=== PATIENT | male | born 1950 | race Caucasian/White ===

== ENCOUNTER → 2017-02-26 | Outpatient (CLI) | payer MEDICARE ==
[~2017-02-26] MED LIST: ALTACE 5MG5 MG PO; ASPIRIN E.C. 8181 MG PO; CORDARONE200 MG/TAB PO; COREG 3.123.125 MG/T PO; K-DUR20 MEQ PO; LASIX 40MG TABL40 MG PO; PROTONIX 40MG T40 MG PO
== END ==
LOC: COL.RAD 09:35
DX: I70.0 Atherosclerosis of aorta (principal); F17.200 Nicotine dependence, unspecified, uncomplicated

== ENCOUNTER 2018-09-09 06:25 | Inpatient (IN) | payer MEDICARE ==
[2018-09-09] VITALS (564 sets, daily range): BP systolic 113–154; BP diastolic 78–103; PULSE 80–99; TEMP 97.6–98.2; O2SAT 82–100
[~2018-09-09] VITALS: Ht 177.8 cm; Wt 80.5 kg
[2018-09-09] MEDS ORDERED: DEMADEX 20MG20 M1 PO (06:45)
[2018-09-09 06:46] LABS: BASO # 0.1 (0.0-0.2); BASO % 0.8 % (0.0-2.0); EOS # 0.1 (0.0-0.7); EOS % 1.9 % (0-4.0); GRAN # 4.6 (1.4-6.5); GRAN % 70.2 % (42.2-75.2); HEMATOCRIT 44.2 % (42.0-52.0); HEMOGLOBIN 14.4 g/dl (13.5-18.0); LYMPH # 1.2 (1.2-3.4); MEAN CELL VOLUME 97 fl (80.0-100.0); MEAN CORPUSCULAR HEMOGLOBIN 32 pg (27.0-31.0); MEAN CORPUSCULAR HGB CONC 33 g/dl (33.0-37.0); MEAN PLATELET VOLUME 9.8 fl (7.4-10.4); MONO # 0.5 (0.1-0.6); MONO % 7.6 % (1.7-9.3); PLATELET COUNT 225 K/mm3 (130-400); RED BLOOD COUNT 4.54 M/mm3 (4.20-5.60); REDCELL DISTRIBUTION WIDTH-CV 15.9 % (11.5-14.5)
[2018-09-09 06:53] LABS: BILIRUBIN,TOTAL 1.4 mg/dL (0.0-1.0); CALCIUM 9.2 mg/dL (8.4-10.2); CREATININE, serum 1.36 mg/dL (0.66-1.25); POTASSIUM 3.8 mmol/L (3.4-5.0); TOTAL PROTEIN 7.2 gm/dL (6.4-8.2)
[2018-09-09 07:07] LABS: TROPONIN-I 0.057 ng/mL (0.000-0.034)
[2018-09-10] VITALS (1034 sets, daily range): BP systolic 92–146; BP diastolic 50–98; PULSE 70–96; TEMP 96.5–98.3; O2SAT 81–100
[2018-09-10 05:30] LABS: BASO % 0.1 % (0.0-2.0); GRAN # 6.4 (1.4-6.5); GRAN % 88.4 % (42.2-75.2); HEMOGLOBIN 13.1 g/dl (13.5-18.0); LYMPH # 0.5 (1.2-3.4); LYMPH % 6.4 % (20.0-51.0); MEAN CELL VOLUME 95 fl (80.0-100.0); MEAN CORPUSCULAR HEMOGLOBIN 32 pg (27.0-31.0); MEAN CORPUSCULAR HGB CONC 34 g/dl (33.0-37.0); MONO # 0.3 (0.1-0.6); MONO % 4.7 % (1.7-9.3); PLATELET COUNT 204 K/mm3 (130-400); RED BLOOD COUNT 4.09 M/mm3 (4.20-5.60); REDCELL DISTRIBUTION WIDTH-CV 15.6 % (11.5-14.5)
[2018-09-10 05:40] LABS: CALCIUM 8.6 mg/dL (8.4-10.2); CREATININE, serum 1.13 mg/dL (0.66-1.25); MAGNESIUM 1.8 mg/dL (1.6-2.3); POTASSIUM 3.8 mmol/L (3.4-5.0)
[2018-09-11 00:35] VITALS: BP 111/70; PULSE 80; TEMP 98.2
[2018-09-11 04:01] VITALS: BP 121/75; PULSE 68
[2018-09-11 07:05] LABS: BASO % 0.5 % (0.0-2.0); EOS # 0.1 (0.0-0.7); GRAN # 6.7 (1.4-6.5); GRAN % 82.3 % (42.2-75.2); HEMOGLOBIN 13.9 g/dl (13.5-18.0); LYMPH # 0.8 (1.2-3.4); LYMPH % 9.9 % (20.0-51.0); MEAN CELL VOLUME 95 fl (80.0-100.0); MEAN CORPUSCULAR HEMOGLOBIN 32 pg (27.0-31.0); MEAN CORPUSCULAR HGB CONC 34 g/dl (33.0-37.0); MEAN PLATELET VOLUME 10.3 fl (7.4-10.4); MONO # 0.5 (0.1-0.6); MONO % 6.2 % (1.7-9.3); PLATELET COUNT 222 K/mm3 (130-400); RED BLOOD COUNT 4.34 M/mm3 (4.20-5.60); REDCELL DISTRIBUTION WIDTH-CV 15.6 % (11.5-14.5)
[2018-09-11 07:20] LABS: ALBUMIN 3.4 gm/dL (3.5-5.0); BILIRUBIN,TOTAL 2.2 mg/dL (0.0-1.0); C-REACTIVE PROTEIN 2.5 mg/dL (0.0-0.9); CALCIUM 8.7 mg/dL (8.4-10.2); CREATININE, serum 1.11 mg/dL (0.66-1.25); POTASSIUM 3.5 mmol/L (3.4-5.0); TOTAL PROTEIN 6.4 gm/dL (6.4-8.2)
[2018-09-11 08:19] VITALS: BP 128/78; PULSE 84; TEMP 98.4
[2018-09-11 11:02] VITALS: BP 95/68; PULSE 82; TEMP 98.8
[2018-09-11] MEDS ORDERED: BRILINTA90 MG PO (13:55)
[2018-09-11] MEDS ORDERED: PROAIR HFA0.09 MG/AC IH (13:55)
[2018-09-11] MEDS ORDERED: PACERONE400 MG PO (13:55)
[2018-09-11] MEDS ORDERED: NITRO-DUR0.6 MG/PAT TD (13:56)
[2018-09-11] MEDS ORDERED: NITROSTAT0.4 MG/TAB SL (13:56)
[2018-09-11] MEDS ORDERED: LIPITOR20 MG PO (13:56)
[2018-09-11] MEDS ORDERED: COREG 3.123.125 MG/T PO (13:56)
[2018-09-11] MEDS ORDERED: LASIX 40MG TABL40 MG PO (13:57)
[2018-09-11] MEDS ORDERED: ENTRESTO 24 MG1 EACH PO (13:57)
[2018-09-11] MEDS ORDERED: ASPIRIN E.C. 8181 MG PO (13:57)
[2018-09-11 17:06] LABS: RHEUMATOID FACTOR-SCREEN <15 IU/mL (0-29)
[2018-09-13 23:47] LABS: ANA SCREEN with REFLEX Positive (Negative)
[2018-09-14 13:37] LABS: ANGIOTENSIN CONVERTING ENZYME 29 U/L (8 - 53)
== END 2018-09-11 15:15 | disposition home or self-care (01) | DRG 246 ==
LOC: COL.ER 06:25 → ICU 08:19 → MEDICAL 09-10 18:01
PROVIDERS: Emergency Medicine; Internal Medicine Pulmonary Disease; Physician Assistant
PROC: B2111ZZ Fluoroscopy of Multiple Coronary Arteries using Low Osmolar Contrast (ICD-10-PCS; principal; 2018-09-09)
PROC: 027034Z Dilation of Coronary Artery, One Artery with Drug-eluting Intraluminal Device, Percutaneous Approach (ICD-10-PCS; 2018-09-09)
PROC: 02703ZZ Dilation of Coronary Artery, One Artery, Percutaneous Approach (ICD-10-PCS; 2018-09-09)
DX: I21.4 Non-ST elevation (NSTEMI) myocardial infarction (principal); I50.23 Acute on chronic systolic (congestive) heart failure; I47.2 Ventricular tachycardia; I42.9 Cardiomyopathy, unspecified; N17.9 Acute kidney failure, unspecified; T82.855A Stenosis of coronary artery stent, initial encounter; J84.9 Interstitial pulmonary disease, unspecified; I27.22 Pulmonary hypertension due to left heart disease; I08.1 Rheumatic disorders of both mitral and tricuspid valves; Z95.810 Presence of automatic (implantable) cardiac defibrillator; I25.10 Atherosclerotic heart disease of native coronary artery without angina pectoris; Z95.5 Presence of coronary angioplasty implant and graft; F17.210 Nicotine dependence, cigarettes, uncomplicated; Z23 Encounter for immunization; J44.9 Chronic obstructive pulmonary disease, unspecified
CPT/HCPCS: 99223-AI; 99232-AI; 99239; C1725; C1760; C1769; C1874; C1887; C1894; C9600; J0282; J1644; J1940; J2250; J2270; J3010; J7030; J7060; Q9967

== ENCOUNTER 2018-11-23 12:25 | Inpatient (IN) | payer MEDICARE ==
[~2018-11-23] VITALS: Ht 177.8 cm; Wt 92.7 kg
[~2018-11-23 12:25] MED LIST changes: +BRILINTA90 MG PO; +DEMADEX 20MG20 M1 PO; +ENTRESTO 24 MG1 EACH PO; +LIPITOR20 MG PO; +NITRO-DUR0.6 MG/PAT TD; +NITROSTAT0.4 MG/TAB SL; +PACERONE400 MG PO; +PROAIR HFA0.09 MG/AC IH
[2018-11-23 13:04] LABS: BASO % 0.3 % (0.0-2.0); EOS % 0.2 % (0-4.0); GRAN # 8.9 (1.4-6.5); GRAN % 83.8 % (42.2-75.2); HEMATOCRIT 44.5 % (42.0-52.0); HEMOGLOBIN 14.6 g/dl (13.5-18.0); LYMPH # 0.6 (1.2-3.4); LYMPH % 5.3 % (20.0-51.0); MEAN CELL VOLUME 93 fl (80.0-100.0); MEAN CORPUSCULAR HEMOGLOBIN 30 pg (27.0-31.0); MEAN CORPUSCULAR HGB CONC 33 g/dl (33.0-37.0); MEAN PLATELET VOLUME 11.4 fl (7.4-10.4); MONO # 1.1 (0.1-0.6); PLATELET COUNT 224 K/mm3 (130-400); REDCELL DISTRIBUTION WIDTH-CV 15.4 % (11.5-14.5)
[2018-11-23 13:27] LABS: INR 1.4 (0.8-3.0); PROTHROMBIN TIME 16.2 SECONDS (9.7-12.8)
[2018-11-23 13:30] LABS: PARTIAL THROMBOPLASTIN TIME 29.8 SECONDS (26.0-37.0)
[2018-11-23 13:31] LABS: ALBUMIN 3.4 gm/dL (3.5-5.0); BILIRUBIN,TOTAL 2.8 mg/dL (0.0-1.0); CALCIUM 8.8 mg/dL (8.4-10.2); CREATININE, serum 0.95 mg/dL (0.66-1.25); POTASSIUM 3.8 mmol/L (3.4-5.0); TOTAL PROTEIN 6.6 gm/dL (6.4-8.2)
[2018-11-23 13:46] LABS: TROPONIN-I 0.047 ng/mL (0.000-0.034)
[2018-11-23] MEDS ORDERED: BRILINTA90 MG PO (15:58)
[2018-11-23] MEDS ORDERED: PACERONE400 MG PO (15:59)
--- NOTE | 2018-11-23 17:40 | NUR ---
arrived on unit per WC, assisted into bed, full assessment completed, see intervention for further info, instructed on ordering supper, verbalizes understanding
[2018-11-23] MEDS ORDERED: DEMADEX 20MG20 M1 PO (17:53)
[2018-11-23 18:08] VITALS: BP 130/874; PULSE 103; TEMP 101.7
--- NOTE | 2018-11-23 18:33 | NUR ---
sitting up in bed eating supper
--- NOTE | 2018-11-23 19:11 | NUR ---
bedside shift report given to KANWAL Bran
[2018-11-23 19:44] VITALS: BP 113/77; PULSE 105; TEMP 99.5
--- NOTE | 2018-11-23 20:20 | NUR ---
Shift assessment complete. Pt resting in bed, awake, a&o, cooperative c cares. Pt denies pain, SOB or any other c/o at this time. INT patent. Tele in place. Pt denies needs. Call light in reach, will monitor.
[2018-11-24 00:03] VITALS: BP 81/49; PULSE 96; TEMP 99.9
[2018-11-24 01:00] VITALS: BP 113/63; PULSE 101
--- NOTE | 2018-11-24 07:00 | NUR ---
Report received from KANWAL Bran. Pt in bed resting, denies needs, will continue to monitor.
[2018-11-24 08:03] VITALS: BP 129/86; PULSE 91; TEMP 100.3
[2018-11-24 08:34] LABS: BASO % 0.2 % (0.0-2.0); GRAN # 10.4 (1.4-6.5); HEMATOCRIT 40.3 % (42.0-52.0); HEMOGLOBIN 13.7 g/dl (13.5-18.0); LYMPH # 0.6 (1.2-3.4); LYMPH % 4.6 % (20.0-51.0); MEAN CELL VOLUME 90 fl (80.0-100.0); MEAN CORPUSCULAR HEMOGLOBIN 30 pg (27.0-31.0); MEAN CORPUSCULAR HGB CONC 34 g/dl (33.0-37.0); MEAN PLATELET VOLUME 9.9 fl (7.4-10.4); MONO # 1.3 (0.1-0.6); MONO % 10.1 % (1.7-9.3); PLATELET COUNT 213 K/mm3 (130-400); REDCELL DISTRIBUTION WIDTH-CV 15.2 % (11.5-14.5)
[2018-11-24 08:46] LABS: CALCIUM 8.7 mg/dL (8.4-10.2); CREATININE, serum 0.97 mg/dL (0.66-1.25); POTASSIUM 3.8 mmol/L (3.4-5.0)
--- NOTE | 2018-11-24 09:13 | NUR ---
Assessment charted. Pt feels warm, PRN tylenol provided. Breathing is labored on exertion and states "i just don't feel real great". Lung assessment charted. Pt wants to eat breakfast and take a shower. Discussed pending RSV panel and droplet precautions. INT to R a/c. Will continue to montior.
[2018-11-24 11:47] VITALS: BP 92/65; PULSE 81; TEMP 97.9
--- NOTE | 2018-11-24 13:27 | NUR ---
First visit from the drywall boardhanger. No needs right now.
[2018-11-24] MEDS ORDERED: AMOXICILLIN 8751 TAB PO (14:34)
[2018-11-24] MEDS ORDERED: NICODERM C14 MG/PATC TD (14:34)
--- NOTE | 2018-11-24 15:44 | NUR ---
Discharge teaching completed at this time. Pt received script sent to pharm, f/u appointments, reveiwed packet. Answered all questions. INT d/c'd, tip intact. Pt escorted out by medical staff. Left with all belongings, okay to drive self home per hospitalist KENROY High. Criteria met.
== END 2018-11-24 15:57 | disposition home or self-care (01) | DRG 313 ==
LOC: COL.ER 12:25 → MEDICAL 15:56
PROVIDERS: Family Medicine; Physician Assistant; ADMIT Hospitalist
DX: R07.89 Other chest pain (principal); J18.9 Pneumonia, unspecified organism; J44.0 Chronic obstructive pulmonary disease with (acute) lower respiratory infection; I50.22 Chronic systolic (congestive) heart failure; R04.2 Hemoptysis; J90 Pleural effusion, not elsewhere classified; I11.0 Hypertensive heart disease with heart failure; I25.10 Atherosclerotic heart disease of native coronary artery without angina pectoris; F17.210 Nicotine dependence, cigarettes, uncomplicated; Z95.5 Presence of coronary angioplasty implant and graft; Z95.810 Presence of automatic (implantable) cardiac defibrillator
CPT/HCPCS: 99222-AI; 99239; A4216; J0456; J0696; J1644; J1940; J2060; J7050

== ENCOUNTER 2018-12-21 08:02 | Inpatient (IN) | payer MEDICARE | END 2018-12-27 15:45 | disposition home or self-care (01) | DRG 280 | LOC: COL.ER 08:02 → ICU 09:22 → MEDICAL 12-23 16:58 → ICU 12-23 23:23 → MEDICAL 12-25 16:34 | PROVIDERS: ADMIT Internal Medicine | DX: I11.0 Hypertensive heart disease with heart failure (principal); I21.4 Non-ST elevation (NSTEMI) myocardial infarction; I26.99 Other pulmonary embolism without acute cor pulmonale; J96.21 Acute and chronic respiratory failure with hypoxia; E87.3 Alkalosis; Z66 Do not resuscitate; I50.23 Acute on chronic systolic (congestive) heart failure; Z87.891 Personal history of nicotine dependence; I25.10 Atherosclerotic heart disease of native coronary artery without angina pectoris; Z95.5 Presence of coronary angioplasty implant and graft; Z95.810 Presence of automatic (implantable) cardiac defibrillator; I25.5 Ischemic cardiomyopathy; E87.6 Hypokalemia ==

== ENCOUNTER 2018-12-28 10:08 | Emergency (ER) | payer MEDICARE ==
[~2018-12-28] VITALS: Ht 177.8 cm; Wt 87.3 kg
[~2018-12-28 10:08] MED LIST changes: +AMOXICILLIN 8751 TAB PO; +COUMADIN4 MG PO; +DEMADEX10 MG PO; +K-DUR 10 MEQ T10 MEQ PO; +NICODERM C14 MG/PATC TD; +PLAVIX 75MG TAB75 MG PO; +ZESTRIL 5MG5 MG PO
[2018-12-28 10:15] VITALS: TEMP 97.6
[2018-12-28 10:32] LABS: BASO % 0.4 % (0.0-2.0); EOS # 0.1 (0.0-0.7); EOS % 1.1 % (0-4.0); GRAN # 5.7 (1.4-6.5); GRAN % 78.5 % (42.2-75.2); HEMATOCRIT 45.3 % (42.0-52.0); HEMOGLOBIN 14.6 g/dl (13.5-18.0); LYMPH # 0.8 (1.2-3.4); LYMPH % 10.8 % (20.0-51.0); MEAN CELL VOLUME 92 fl (80.0-100.0); MEAN CORPUSCULAR HEMOGLOBIN 30 pg (27.0-31.0); MEAN CORPUSCULAR HGB CONC 32 g/dl (33.0-37.0); MEAN PLATELET VOLUME 10.2 fl (7.4-10.4); MONO # 0.6 (0.1-0.6); MONO % 8.8 % (1.7-9.3); PLATELET COUNT 233 K/mm3 (130-400); RED BLOOD COUNT 4.94 M/mm3 (4.20-5.60); REDCELL DISTRIBUTION WIDTH-CV 16.2 % (11.5-14.5)
[2018-12-28 10:40] LABS: ARTERIAL BLD GAS TCO2 CT 31.9; ARTERIAL BLOOD GAS BASE EXCESS 6.6 (-2-2); ARTERIAL BLOOD GAS HCO3 30.6 meq/L (22-26); ARTERIAL BLOOD GAS PCO2 41.3 mmHg (35-45); ARTERIAL BLOOD GAS pH 7.49 (7.35-7.45)
[2018-12-28 10:50] LABS: ALBUMIN 3.5 gm/dL (3.5-5.0); BILIRUBIN,TOTAL 1.4 mg/dL (0.0-1.0); CREATININE, serum 1.03 mg/dL (0.66-1.25); POTASSIUM 4.1 mmol/L (3.4-5.0); TOTAL PROTEIN 7.2 gm/dL (6.4-8.2)
[2018-12-28 11:57] LABS: INR 2.5 (0.8-3.0); PROTHROMBIN TIME 28.9 SECONDS (9.7-12.8)
--- NOTE | 2018-12-28 14:30 | NUR ---
BUBBA spoke with ED nurse about patient possibly needing placement or home health services. BUBBA met with patient and son in law to disucss SNF vs HH. Patient and ANDREW decided that SNF would be the best option at this time. Patient chose [facility] and signed choice form. BUBBA faxed referral to Nikita at [facility]. Nikita also met with patient in ED. BUBBA will arrange transportation once PT/OT evaluated patient.
[2018-12-28 16:08] VITALS: BP 116/93; PULSE 72
== END 2018-12-28 16:08 | disposition home or self-care (01) ==
LOC: COL.ER 10:08
PROVIDERS: Emergency Medicine
DX: I26.99 Other pulmonary embolism without acute cor pulmonale (principal); I25.10 Atherosclerotic heart disease of native coronary artery without angina pectoris; Z87.891 Personal history of nicotine dependence; Z98.890 Other specified postprocedural states; Z95.5 Presence of coronary angioplasty implant and graft; Z79.82 Long term (current) use of aspirin; Z79.01 Long term (current) use of anticoagulants; Z79.02 Long term (current) use of antithrombotics/antiplatelets
CPT/HCPCS: J1885; J1940; J2930

== ENCOUNTER 2019-01-12 12:15 | Emergency (ER) | payer MEDICARE ==
[~2019-01-12] VITALS: Ht 177.8 cm; Wt 91.8 kg
[2019-01-12 12:32] VITALS: TEMP 97.9
[2019-01-12 14:00] LABS: BASO % 0.4 % (0.0-2.0); EOS # 0.1 (0.0-0.7); EOS % 1.3 % (0-4.0); GRAN # 3.4 (1.4-6.5); GRAN % 71.6 % (42.2-75.2); HEMATOCRIT 41.1 % (42.0-52.0); HEMOGLOBIN 13.4 g/dl (13.5-18.0); LYMPH % 20.8 % (20.0-51.0); MEAN CELL VOLUME 91 fl (80.0-100.0); MEAN CORPUSCULAR HEMOGLOBIN 30 pg (27.0-31.0); MEAN CORPUSCULAR HGB CONC 33 g/dl (33.0-37.0); MONO # 0.3 (0.1-0.6); MONO % 5.7 % (1.7-9.3); PLATELET COUNT 192 K/mm3 (130-400); RED BLOOD COUNT 4.53 M/mm3 (4.20-5.60); REDCELL DISTRIBUTION WIDTH-CV 17.7 % (11.5-14.5)
[2019-01-12 14:12] LABS: INR 4.3 (0.8-3.0)
[2019-01-12 14:13] LABS: ALBUMIN 3.3 gm/dL (3.5-5.0); BILIRUBIN,TOTAL 1.1 mg/dL (0.0-1.0); CALCIUM 8.5 mg/dL (8.4-10.2); CREATININE, serum 1.46 mg/dL (0.66-1.25); POTASSIUM 3.9 mmol/L (3.4-5.0); TOTAL PROTEIN 6.2 gm/dL (6.4-8.2)
[2019-01-12 14:15] LABS: PARTIAL THROMBOPLASTIN TIME 43.7 SECONDS (26.0-37.0)
[2019-01-12 14:20] LABS: PROTHROMBIN TIME 48.6 SECONDS (9.7-12.8)
[2019-01-12 14:25] LABS: TROPONIN-I 0.015 ng/mL (0.000-0.035)
[2019-01-12 17:09] VITALS: BP 113/96; PULSE 70
== END 2019-01-12 17:20 | disposition home or self-care (01) ==
LOC: COL.ER 12:15
PROVIDERS: Emergency Medicine
DX: I50.1 Left ventricular failure, unspecified (principal); I10 Essential (primary) hypertension; I25.10 Atherosclerotic heart disease of native coronary artery without angina pectoris; E78.5 Hyperlipidemia, unspecified; Z95.5 Presence of coronary angioplasty implant and graft; Z95.1 Presence of aortocoronary bypass graft; Z79.82 Long term (current) use of aspirin
CPT/HCPCS: J1940

== ENCOUNTER 2019-09-16 17:57 | Observation (INO) | payer MEDICARE ==
[~2019-09-16] VITALS: Ht 177.8 cm; Wt 90.6 kg
[2019-09-16 18:28] LABS: BASO # 0.1 (0.0-0.2); BASO % 1.3 % (0.0-2.0); EOS # 0.2 (0.0-0.7); EOS % 4.2 % (0-4.0); GRAN # 3.2 (1.4-6.5); GRAN % 60.4 % (42.2-75.2); HEMATOCRIT 42.9 % (42.0-52.0); HEMOGLOBIN 13.4 g/dl (13.5-18.0); LYMPH # 1.2 (1.2-3.4); LYMPH % 22.3 % (20.0-51.0); MEAN CELL VOLUME 89 fl (80.0-100.0); MEAN CORPUSCULAR HEMOGLOBIN 28 pg (27.0-31.0); MEAN CORPUSCULAR HGB CONC 31 g/dl (33.0-37.0); MEAN PLATELET VOLUME 9.6 fl (7.4-10.4); MONO # 0.6 (0.1-0.6); MONO % 11.4 % (1.7-9.3); PLATELET COUNT 212 K/mm3 (130-400); REDCELL DISTRIBUTION WIDTH-CV 18.5 % (11.5-14.5)
[2019-09-16 18:36] LABS: INR 1.9 (0.8-3.0); PROTHROMBIN TIME 22.4 SECONDS (9.7-12.8)
[2019-09-16 18:46] LABS: BILIRUBIN,TOTAL 1.8 mg/dL (0.0-1.0); C-REACTIVE PROTEIN 1.1 mg/dL (0.0-0.9); CREATININE, serum 1.28 (0.66-1.25); POTASSIUM 3.2 mmol/L (3.4-5.0); TOTAL PROTEIN 7.3 gm/dL (6.4-8.2)
[2019-09-16 18:55] LABS: TROPONIN-I 0.019 ng/mL (0.000-0.035)
[2019-09-16] MEDS ORDERED: PLAVIX 75MG TAB75 MG PO (20:31)
[2019-09-17] VITALS (7 sets, daily range): BP systolic 95–122; BP diastolic 64–86; PULSE 50–104; TEMP 97.6–98.6
[2019-09-17] MEDS ORDERED: COUMADIN4 MG PO ×2 (01:41)
[2019-09-17] MEDS ORDERED: COREG 3.123.125 MG/T PO (01:43)
[2019-09-17] MEDS ORDERED: DEMADEX 20MG20 M1 PO (01:44)
[2019-09-17] MEDS ORDERED: PACERONE200 MG PO (01:47)
[2019-09-17] MEDS ORDERED: K-TAB20 PO (02:57)
[2019-09-17 04:42] LABS: BASO # 0.1 (0.0-0.2); BASO % 1.1 % (0.0-2.0); EOS # 0.1 (0.0-0.7); EOS % 1.1 % (0-4.0); GRAN # 4.1 (1.4-6.5); GRAN % 73.8 % (42.2-75.2); HEMATOCRIT 39.8 % (42.0-52.0); HEMOGLOBIN 12.8 g/dl (13.5-18.0); LYMPH # 0.8 (1.2-3.4); MEAN CELL VOLUME 89 fl (80.0-100.0); MEAN CORPUSCULAR HEMOGLOBIN 29 pg (27.0-31.0); MEAN CORPUSCULAR HGB CONC 32 g/dl (33.0-37.0); MEAN PLATELET VOLUME 9.8 fl (7.4-10.4); MONO # 0.5 (0.1-0.6); MONO % 9.8 % (1.7-9.3); PLATELET COUNT 192 K/mm3 (130-400); RED BLOOD COUNT 4.49 M/mm3 (4.20-5.60); REDCELL DISTRIBUTION WIDTH-CV 18.2 % (11.5-14.5)
[2019-09-17 04:48] LABS: CALCIUM 8.7 mg/dL (8.4-10.2); CREATININE, serum 1.1 (0.66-1.25); POTASSIUM 3.8 mmol/L (3.4-5.0)
[2019-09-17 04:54] LABS: INR 2.1 (0.8-3.0)
[2019-09-17 05:00] LABS: TROPONIN-I 0.023 ng/mL (0.000-0.035)
--- NOTE | 2019-09-17 18:37 | NUR ---
PT HAD UNEVENTFUL DAY. NO CALLS TO THIS NURSE ABOUT CAHNGES IN TELE RTHYMS OR OVER OR UNDER RATE ALARMS. POTASSIUM REPLACED THIS AM WAS 3.8, PT HAD ONE 20MEQ TABLET. PT ON ROOM AIR THIS SHIFT. NEEDED PAIN MED X1 THIS AFTERNOON FOR HEAD/RIB PAIN, NO FURTHER NEEDS VOICED AFTERWARDS.
--- NOTE | 2019-09-17 21:30 | NUR ---
Shift assessment complete. Patient in bed, awake. States, pain in left side from previous fall. Prn tylenol given per pt request. Denies further needs at this time. Will continue to monitor.
[2019-09-18 03:33] VITALS: BP 99/67; PULSE 73; TEMP 97.9
--- NOTE | 2019-09-18 04:25 | NUR ---
Patient in bed, sleeping. Appears comfortable. Will continue to monitor.
[2019-09-18 06:27] LABS: CALCIUM 8.6 mg/dL (8.4-10.2); CREATININE, serum 1.29 (0.66-1.25); POTASSIUM 3.6 mmol/L (3.4-5.0)
[2019-09-18 07:46] VITALS: BP 106/68; PULSE 70; TEMP 98.5
[2019-09-18] MEDS ORDERED: PACERONE200 MG PO (11:51)
[2019-09-18 12:01] VITALS: BP 101/73; PULSE 71; TEMP 97.3
--- NOTE | 2019-09-18 14:41 | NUR ---
PT DISCHARGE INFO WENT OVER WITH PT. ALL QUESITONS ANSWERED. IV AND TELE REMOVED WITHOUT ISSUE. REVIEWED [facility] WITH PT.
== END 2019-09-18 13:30 | disposition home or self-care (01) ==
LOC: COL.ER 17:57 → MEDICAL 23:23
PROVIDERS: Emergency Medicine; Nurse Practitioner Family; ADMIT Hospitalist
DX: R55 Syncope and collapse (principal); I47.2 Ventricular tachycardia; S00.83XA Contusion of other part of head, initial encounter; S20.212A Contusion of left front wall of thorax, initial encounter; I13.0 Hypertensive heart and chronic kidney disease with heart failure and stage 1 through stage 4 chronic kidney disease, or unspecified chronic kidney disease; E87.6 Hypokalemia; I48.91 Unspecified atrial fibrillation; Z79.01 Long term (current) use of anticoagulants; I25.10 Atherosclerotic heart disease of native coronary artery without angina pectoris; I25.5 Ischemic cardiomyopathy; I50.30 Unspecified diastolic (congestive) heart failure; Z86.711 Personal history of pulmonary embolism; N18.3 Chronic kidney disease, stage 3 (moderate); I25.2 Old myocardial infarction; Z95.5 Presence of coronary angioplasty implant and graft; Z87.891 Personal history of nicotine dependence; Z79.82 Long term (current) use of aspirin; Z79.02 Long term (current) use of antithrombotics/antiplatelets
CPT/HCPCS: A9284; G0008; G0378; J1650; J7030

== ENCOUNTER 2020-10-03 13:43 | Emergency (ER) | payer MEDICARE ==
[~2020-10-03] VITALS: Ht 177.8 cm; Wt 98.6 kg
[~2020-10-03 13:43] MED LIST changes: +K-TAB20 PO; +PACERONE200 MG PO
[2020-10-03 14:12] LABS: BASO % 0.7 % (0.0-2.0); EOS # 0.1 (0.0-0.7); GRAN # 4.2 (1.4-6.5); GRAN % 75.7 % (42.2-75.2); HEMATOCRIT 48.6 % (42.0-52.0); HEMOGLOBIN 15.9 g/dl (13.5-18.0); LYMPH # 0.6 (1.2-3.4); LYMPH % 10.7 % (20.0-51.0); MEAN CELL VOLUME 94 fl (80.0-100.0); MEAN CORPUSCULAR HEMOGLOBIN 31 pg (27.0-31.0); MEAN CORPUSCULAR HGB CONC 33 g/dl (33.0-37.0); MEAN PLATELET VOLUME 9.9 fl (7.4-10.4); MONO # 0.6 (0.1-0.6); MONO % 10.7 % (1.7-9.3); PLATELET COUNT 220 K/mm3 (130-400); RED BLOOD COUNT 5.17 M/mm3 (4.20-5.60); REDCELL DISTRIBUTION WIDTH-CV 17.4 % (11.5-14.5)
[2020-10-03 15:00] LABS: ALBUMIN 3.7 gm/dL (3.5-5.0); BILIRUBIN,TOTAL 2.5 mg/dL (0.0-1.0); CALCIUM 8.9 mg/dL (8.4-10.2); CREATININE, serum 1.88 (0.66-1.25); POTASSIUM 4.1 mmol/L (3.4-5.0); TOTAL PROTEIN 6.9 gm/dL (6.4-8.2)
[2020-10-03] MEDS ORDERED: K-DUR20 MEQ PO (15:03)
[2020-10-03 15:12] LABS: TROPONIN-I 0.026 ng/mL (0.000-0.035)
[2020-10-03] MEDS ORDERED: ZAROXOLYN5 MG PO (15:46)
[2020-10-03 16:00] VITALS: BP 117/82; PULSE 69; TEMP 97.6
== END 2020-10-03 16:10 | disposition home or self-care (01) ==
LOC: COL.ER 13:43
PROVIDERS: Emergency Medicine
DX: I50.9 Heart failure, unspecified (principal); Z95.0 Presence of cardiac pacemaker; Z98.61 Coronary angioplasty status; Z87.891 Personal history of nicotine dependence; Z79.82 Long term (current) use of aspirin; Z79.01 Long term (current) use of anticoagulants; Z79.02 Long term (current) use of antithrombotics/antiplatelets

== ENCOUNTER 2021-01-03 13:29 | Emergency (ER) | payer MEDICARE ==
[~2021-01-03] VITALS: Ht 177.8 cm; Wt 88.6 kg
[~2021-01-03 13:29] MED LIST changes: +ZAROXOLYN5 MG PO
[2021-01-03 14:12] LABS: BASO % 0.5 % (0.0-2.0); EOS # 0.1 (0.0-0.7); EOS % 1.3 % (0-4.0); GRAN # 6.8 (1.4-6.5); GRAN % 80.7 % (42.2-75.2); HEMATOCRIT 48.7 % (42.0-52.0); HEMOGLOBIN 16.8 g/dl (13.5-18.0); LYMPH # 0.7 (1.2-3.4); LYMPH % 7.9 % (20.0-51.0); MEAN CELL VOLUME 92 fl (80.0-100.0); MEAN CORPUSCULAR HEMOGLOBIN 32 pg (27.0-31.0); MEAN CORPUSCULAR HGB CONC 35 g/dl (33.0-37.0); MEAN PLATELET VOLUME 9.4 fl (7.4-10.4); MONO # 0.8 (0.1-0.6); MONO % 9.2 % (1.7-9.3); PLATELET COUNT 308 K/mm3 (130-400); RED BLOOD COUNT 5.29 M/mm3 (4.20-5.60); REDCELL DISTRIBUTION WIDTH-CV 15.9 % (11.5-14.5)
[2021-01-03 14:19] LABS: ALBUMIN 4.6 gm/dL (3.5-5.0); BILIRUBIN,TOTAL 1.7 mg/dL (0.0-1.0); CALCIUM 9.6 mg/dL (8.4-10.2); CREATININE, serum 3.53 (0.66-1.25); TOTAL PROTEIN 8.4 gm/dL (6.4-8.2)
[2021-01-03 14:34] LABS: INR 1.8 (0.8-3.0); PROTHROMBIN TIME 20.2 SECONDS (9.7-12.8)
[2021-01-03 14:35] LABS: TROPONIN-I 0.058 ng/mL (0.000-0.035)
[2021-01-03 18:07] VITALS: BP 108/75; PULSE 69; TEMP 97.2
== END 2021-01-03 18:10 | disposition home or self-care (01) ==
LOC: COL.ER 13:29
PROVIDERS: Family Medicine; Physician Assistant
DX: R55 Syncope and collapse (principal); E87.1 Hypo-osmolality and hyponatremia; E86.0 Dehydration; I50.9 Heart failure, unspecified; Z95.0 Presence of cardiac pacemaker; I25.2 Old myocardial infarction; Z98.61 Coronary angioplasty status; Z87.891 Personal history of nicotine dependence; Z79.82 Long term (current) use of aspirin; Z79.01 Long term (current) use of anticoagulants; Z79.02 Long term (current) use of antithrombotics/antiplatelets

== ENCOUNTER 2021-05-07 12:22 | Observation (INO) | payer MEDICARE ==
[~2021-05-07] VITALS: Ht 177.8 cm; Wt 96.4 kg
[2021-05-07 12:47] LABS: BASO % 0.6 % (0.0-2.0); EOS # 0.1 (0.0-0.7); EOS % 1.6 % (0-4.0); GRAN # 5.4 (1.4-6.5); HEMATOCRIT 50.6 % (42.0-52.0); HEMOGLOBIN 17.1 g/dl (13.5-18.0); LYMPH # 0.7 (1.2-3.4); LYMPH % 10.8 % (20.0-51.0); MEAN CELL VOLUME 91 fl (80.0-100.0); MEAN CORPUSCULAR HEMOGLOBIN 31 pg (27.0-31.0); MEAN CORPUSCULAR HGB CONC 34 g/dl (33.0-37.0); MEAN PLATELET VOLUME 9.5 fl (7.4-10.4); MONO # 0.6 (0.1-0.6); MONO % 8.7 % (1.7-9.3); PLATELET COUNT 278 K/mm3 (130-400); RED BLOOD COUNT 5.54 M/mm3 (4.20-5.60); REDCELL DISTRIBUTION WIDTH-CV 13.6 % (11.5-14.5)
[2021-05-07 13:02] LABS: ALBUMIN 4.5 gm/dL (3.5-5.0); BILIRUBIN,TOTAL 1.4 mg/dL (0.0-1.0); C-REACTIVE PROTEIN 0.8 mg/dL (0.0-0.9); CALCIUM 9.5 mg/dL (8.4-10.2); CREATININE, serum 3.01 (0.66-1.25); TOTAL PROTEIN 8.6 gm/dL (6.4-8.2)
[2021-05-07 13:03] LABS: POTASSIUM 2.9 mmol/L (3.4-5.0)
[2021-05-07] MEDS ORDERED: ZAROXOLYN 2.52.5 MG (13:08)
[2021-05-07 13:15] LABS: TROPONIN-I 0.042 ng/mL (0.000-0.035)
[2021-05-07 13:46] LABS: INR 1.7 (0.8-3.0); PROTHROMBIN TIME 19.1 SECONDS (9.7-12.8)
--- NOTE | 2021-05-07 16:09 | NUR ---
PT TRANSFERRED TO MEDICAL FLOOR AT 1555 VIA ER STAFF, PT A/OX, ROOM AIR, VSS, PT REQUESTS FOOD AND WATER, NURSE AWAITING DIET ORDERS TO PROCEED WITH DIET CONSUMPTION. TELE MONITOR ON AND FUNCTIONAL. NURSE WILL CONDUCT ASSESMENT.CALL LIGHT WITHIN REACH.
[2021-05-07 16:15] VITALS: BP 113/71; PULSE 68; TEMP 98
[2021-05-07 16:41] LABS: MAGNESIUM 2.4 mg/dL (1.6-2.3)
[2021-05-07 17:55] VITALS: BP 119/67; PULSE 70; TEMP 98.3
[2021-05-07 17:56] VITALS: BP 110/74; PULSE 73; TEMP 98.3
[2021-05-07 17:57] VITALS: BP 98/65; PULSE 73; TEMP 98.3
--- NOTE | 2021-05-07 18:18 | NUR ---
This nurse was able to interrogate patients pacemaker, [employer] was able to fax over copy of pacemaker data, nurse informed him of need for orthostatic hypotension record of vitals, Orthostatics positive. Nurse reviewed POC with pt. Pt verbalizes understanding. Pt expresses no additonal needs at this time. Call light within reach.
[2021-05-07 21:34] VITALS: BP 97/64; PULSE 70; TEMP 98.3
[2021-05-08] VITALS (7 sets, daily range): BP systolic 90–117; BP diastolic 37–76; PULSE 69–77; TEMP 97.5–98
--- NOTE | 2021-05-08 02:31 | NUR ---
Seymour is very coperative and no complains all nights. His BP is in low number of 97/64. He got 500ml NS and it increase to 110/58 at midnight. He denies pain, nausea or vomitting. He is sleep calmly in bed and didn't call for anything.His troponinfrom 0.047 went down only to 0.046 Jes is aware. continue to monitor.
--- NOTE | 2021-05-08 04:25 | NUR ---
Seymour called this morning for having hives and itchiness. he said that he was on medication last week that he feels like he had a reaction. RN called Norma for Benadryl and she puts the order in oral. After that he said he is better. His blood pressure is been stable too. continue to follow.
[2021-05-08 06:44] LABS: BASO % 0.6 % (0.0-2.0); EOS # 0.2 (0.0-0.7); EOS % 3.4 % (0-4.0); GRAN # 4.7 (1.4-6.5); GRAN % 75.7 % (42.2-75.2); HEMATOCRIT 48.1 % (42.0-52.0); LYMPH # 0.6 (1.2-3.4); LYMPH % 10.2 % (20.0-51.0); MEAN CELL VOLUME 93 fl (80.0-100.0); MEAN CORPUSCULAR HEMOGLOBIN 31 pg (27.0-31.0); MEAN CORPUSCULAR HGB CONC 33 g/dl (33.0-37.0); MEAN PLATELET VOLUME 9.7 fl (7.4-10.4); MONO # 0.6 (0.1-0.6); MONO % 9.6 % (1.7-9.3); PLATELET COUNT 226 K/mm3 (130-400); RED BLOOD COUNT 5.16 M/mm3 (4.20-5.60); REDCELL DISTRIBUTION WIDTH-CV 13.7 % (11.5-14.5)
[2021-05-08 06:45] LABS: INR 1.7 (0.8-3.0); PROTHROMBIN TIME 19.2 SECONDS (9.7-12.8)
[2021-05-08 06:49] LABS: CALCIUM 9.2 mg/dL (8.4-10.2); CREATININE, serum 2.16 (0.66-1.25); MAGNESIUM 2.4 mg/dL (1.6-2.3)
--- NOTE | 2021-05-08 06:50 | NUR ---
Report with KANWAL Rogel. Pt resting in bed, awakens briefly, denies needs or c/o. Call light in reach.
[2021-05-08 06:52] LABS: POTASSIUM 2.8 mmol/L (3.4-5.0)
[2021-05-08 07:20] LABS: TROPONIN-I 0.052 ng/mL (0.000-0.035)
[2021-05-08] MEDS ORDERED: PACERONE200 MG PO (08:02)
--- NOTE | 2021-05-08 08:30 | NUR ---
Assessment complete. Pt resting in bed, A&O x 3, denies epigastric pain but reports headache. Pt denies nausea, reports feeling hungry. This nurse informs pt of advancement of diet options, pt agreeable and looking at menu. Physical assessment otherwise unremarkable. Pt provided coffee for headache. No further needs reported. Call light in reach.
--- NOTE | 2021-05-08 09:15 | NUR ---
Pt reports headache has resolved after eating and drinking coffee. Pt reports Potassium/orange juice is causing a slight "stomach upset" but denies pain. No needs reported. Call light in reach.
--- NOTE | 2021-05-08 11:24 | NUR ---
BUBBA met with the patient to discuss discharge plan. The patient lives alone in [place]. He states that his daughter, Yina Bhagat (ph#[phone], and her family live a few miles away from him. He reports independence with ADLs and does not have any DME. The patient's PCP is Dr. Melva Shin and he receives his medications from [facility]. He reports no difficulties obtaining his meds. The patient does not have a DPOA-HC in EMR, but he states that he does have one completed and that he designated his daughter, Yina. He states that his PCP's office may have a copy of it. BUBBA contacted KANWAL [place] person, at [facility]. Corrina reports that they do have his DPOA-HC on file and will fax it to the medical unit. The patient plans to return home upon discharge. No additional needs at this time. *Discharge plan: home*
--- NOTE | 2021-05-08 11:32 | NUR ---
Pt ambulating in hallway with PT, steady gait.
--- NOTE | 2021-05-08 11:48 | NUR ---
First visit from the typewriter tester. No needs right now.
--- NOTE | 2021-05-08 17:30 | NUR ---
Pt sitting up in bed, sched medications administered and POC for overnight stay reviewed with pt. Pt verbalizes understanding, denies pain or needs at this time. Call light in reach.
--- NOTE | 2021-05-08 18:57 | NUR ---
Report with KANWAL Rogel.
--- NOTE | 2021-05-09 03:49 | NUR ---
Seymour was been fine all night. He dont have any issues denies pain, nausea or vomitting. He only called this morning for Benadryl he complains of hives and itchiness in his back. Otherwise he gets back to sleep after.
[2021-05-09 04:36] VITALS: BP 117/72; PULSE 69; TEMP 97.9
[2021-05-09 06:55] LABS: BASO # 0.1 (0.0-0.2); BASO % 0.9 % (0.0-2.0); EOS # 0.4 (0.0-0.7); EOS % 6.6 % (0-4.0); GRAN # 3.7 (1.4-6.5); HEMATOCRIT 46.1 % (42.0-52.0); HEMOGLOBIN 15.1 g/dl (13.5-18.0); LYMPH # 0.8 (1.2-3.4); LYMPH % 14.7 % (20.0-51.0); MEAN CELL VOLUME 94 fl (80.0-100.0); MEAN CORPUSCULAR HEMOGLOBIN 31 pg (27.0-31.0); MEAN CORPUSCULAR HGB CONC 33 g/dl (33.0-37.0); MONO # 0.5 (0.1-0.6); MONO % 9.4 % (1.7-9.3); PLATELET COUNT 242 K/mm3 (130-400); RED BLOOD COUNT 4.92 M/mm3 (4.20-5.60); REDCELL DISTRIBUTION WIDTH-CV 13.8 % (11.5-14.5)
[2021-05-09 06:59] LABS: INR 1.7 (0.8-3.0); PROTHROMBIN TIME 18.5 SECONDS (9.7-12.8)
[2021-05-09 07:00] LABS: CALCIUM 9.2 mg/dL (8.4-10.2); CREATININE, serum 2.24 (0.66-1.25); MAGNESIUM 2.6 mg/dL (1.6-2.3); POTASSIUM 3.2 mmol/L (3.4-5.0)
[2021-05-09 08:16] VITALS: BP 96/60; PULSE 70; TEMP 98.4
--- NOTE | 2021-05-09 09:40 | NUR ---
Assessment completed, alert/oriented, vital signs stable, denies pain or discomfort, heart RRR/ distal pulse sare palpable, paced on tele, lung SCTA/ no resp.difficulty noted, had no adverse effect overnight from starting spirnolactone/ plans for DC from Cardiology standpoint, denies needs
--- NOTE | 2021-05-09 10:24 | NUR ---
Initial visit; Patient thanked Flat Clothier for looking in on him and offering God's blessings and to keep him in her prayers.
[2021-05-09 12:18] VITALS: BP 93/59; PULSE 68; TEMP 98
[2021-05-09 13:00] LABS: HEMATOCRIT 46.3 % (42.0-52.0); HEMOGLOBIN 15.6 g/dl (13.5-18.0)
[2021-05-09 13:10] LABS: CALCIUM 9.2 mg/dL (8.4-10.2); CREATININE, serum 2.25 (0.66-1.25)
[2021-05-09] MEDS ORDERED: COREG 3.123.125 MG/T PO (13:28)
[2021-05-09] MEDS ORDERED: ALDACTONE 25MG25 M1 PO (13:28)
[2021-05-09] MEDS ORDERED: JARDIANCE10 PO (13:30)
[2021-05-09] MEDS ORDERED: PROTONIX 40MG T40 MG PO (13:37)
--- NOTE | 2021-05-09 16:43 | NUR ---
Discharge orders discussed with the patient, instructed to follow up with PCP/GI/Cards/Dermatology as scheduled, instructed to take meds as prescirbed, scripts for new meds sent to pharmacy for him, IV and tele removed, patient ambulatory and I escorted him out the door
[2021-09-29] MEDS ORDERED: ROXICODONE 55 MG/TAB PO (14:07)
[2021-09-29] MEDS ORDERED: DEMADEX 20MG20 M1 PO (22:20)
[2021-09-29] MEDS ORDERED: K-TAB20 PO (22:21)
== END 2021-05-09 16:45 | disposition home or self-care (01) ==
LOC: COL.ER 12:22 → MEDICAL 14:33
PROVIDERS: Nurse Practitioner Primary Care; Physician Assistant; ADMIT Internal Medicine
DX: R79.89 Other specified abnormal findings of blood chemistry (principal); R11.2 Nausea with vomiting, unspecified; R10.9 Unspecified abdominal pain; E87.6 Hypokalemia; I25.5 Ischemic cardiomyopathy; I48.91 Unspecified atrial fibrillation; I47.2 Ventricular tachycardia; I25.10 Atherosclerotic heart disease of native coronary artery without angina pectoris; I50.20 Unspecified systolic (congestive) heart failure; R74.8 Abnormal levels of other serum enzymes; R51.9 Headache, unspecified; I25.2 Old myocardial infarction; E87.3 Alkalosis; C44.609 Unspecified malignant neoplasm of skin of left upper limb, including shoulder; Z79.01 Long term (current) use of anticoagulants; Z87.891 Personal history of nicotine dependence; Z95.810 Presence of automatic (implantable) cardiac defibrillator; Z79.82 Long term (current) use of aspirin; Z79.899 Other long term (current) drug therapy; Z79.02 Long term (current) use of antithrombotics/antiplatelets
CPT/HCPCS: 99232-AI; G0378; J2405; J3480; J7030; J7040

== ENCOUNTER 2021-09-25 10:54 | Emergency (ER) | payer MEDICARE ==
[~2021-09-25] VITALS: Ht 175.3 cm; Wt 90.9 kg
[~2021-09-25 10:54] MED LIST changes: +ALDACTONE 25MG25 M1 PO; +JARDIANCE10 PO; +ZAROXOLYN 2.52.5 MG
[2021-09-25 10:55] VITALS: TEMP 98.1
[2021-09-25 11:50] LABS: INR 1.4 (0.8-3.0); PROTHROMBIN TIME 15.7 SECONDS (9.7-12.8)
[2021-09-25 12:01] LABS: ALBUMIN 2.8 gm/dL (3.4-4.8); BILIRUBIN,TOTAL 1.1 mg/dL (0.2-1.2); C-REACTIVE PROTEIN 8.23 mg/dL (0.00-0.50); CALCIUM 8.1 mg/dL (8.4-10.2); CREATININE, serum 1.47 mg/dL (0.72-1.25); TOTAL PROTEIN 6.4 gm/dL (6.2-8.1)
[2021-09-25 12:06] LABS: TROPONIN-I 0.026 ng/mL (0.00-0.033)
[2021-09-25 12:13] LABS: POTASSIUM 4.3 mmol/L (3.5-4.5)
[2021-09-25 12:18] LABS: HEMATOCRIT 37.6 % (42.0-52.0); HEMOGLOBIN 12.4 g/dl (13.5-18.0); MEAN CELL VOLUME 93 fl (80.0-100.0); MEAN CORPUSCULAR HEMOGLOBIN 31 pg (27.0-31.0); MEAN CORPUSCULAR HGB CONC 33 g/dl (33.0-37.0); MEAN PLATELET VOLUME 9.4 fl (7.4-10.4); PLATELET COUNT 178 K/mm3 (130-400); RED BLOOD COUNT 4.06 M/mm3 (4.20-5.60); REDCELL DISTRIBUTION WIDTH-CV 15.9 % (11.5-14.5)
[2021-09-25 12:27] LABS: BAND 13 % (0-10); EOSINOPHIL 1 % (0-4); LYMPHOCYTE 8 % (20.0-51.0); METAMYELOCYTE 1 % (0-0); NEUTROPHILS 65 % (42.0-75.2); PLATELET ESTIMATE NORMAL (NORMAL)
[2021-09-25 15:37] VITALS: BP 102/66; PULSE 70
[2021-09-29] MEDS ORDERED: ROXICODONE 55 MG/TAB PO (14:07)
[2021-09-29] MEDS ORDERED: DEMADEX 20MG20 M1 PO (22:20)
[2021-09-29] MEDS ORDERED: K-TAB20 PO (22:21)
== END 2021-09-25 15:56 | disposition home or self-care (01) ==
LOC: COL.ER 10:54
PROVIDERS: Emergency Medicine
DX: S22.42XA Multiple fractures of ribs, left side, initial encounter for closed fracture (principal); S42.102A Fracture of unspecified part of scapula, left shoulder, initial encounter for closed fracture; I25.2 Old myocardial infarction; I50.9 Heart failure, unspecified; Z98.61 Coronary angioplasty status; Z95.0 Presence of cardiac pacemaker; Z86.711 Personal history of pulmonary embolism; Z87.891 Personal history of nicotine dependence; Z96.89 Presence of other specified functional implants; Z79.82 Long term (current) use of aspirin; Z79.01 Long term (current) use of anticoagulants; W14.XXXA Fall from tree, initial encounter
CPT/HCPCS: J2270; J2405; J7030; Q9967

== ENCOUNTER → 2021-11-14 | Outpatient (CLI) | payer MEDICARE ==
[~2021-11-14] MED LIST changes: +ROXICODONE 55 MG/TAB PO
== END ==
LOC: COL.RAD 09:06
DX: M51.36 Other intervertebral disc degeneration, lumbar region (principal); M48.061 Spinal stenosis, lumbar region without neurogenic claudication; W14.XXXS Fall from tree, sequela

== ENCOUNTER → 2022-03-11 | Outpatient (CLI) | payer MEDICARE | LOC: COL.RAD 09:54 | DX: R18.8 Other ascites (principal); R14.0 Abdominal distension (gaseous) ==

== ENCOUNTER 2022-03-17 08:53 | Outpatient (RCR) | payer MEDICARE ==
[~2022-03-17] VITALS: Ht 177.8 cm; Wt 104.7 kg
[2022-03-17] VITALS (18 sets, daily range): BP systolic 91–128; BP diastolic 69–104; PULSE 56–78; TEMP 98.2
[2022-03-17] MEDS ORDERED: ASPIRIN E.C. 8181 MG PO (09:38)
[2022-03-17] MEDS ORDERED: PLAVIX 75MG TAB75 MG PO (09:38)
[2022-03-17 09:41] LABS: CALCIUM 8.8 mg/dL (8.4-10.2); CREATININE, serum 2.09 mg/dL (0.72-1.25); MAGNESIUM 1.8 mg/dL (1.6-2.6)
[2022-03-17 10:59] LABS: BASO # 0.1 K/mm3 (0.0-0.2); BASO % 0.9 % (0.0-2.0); EOS # 0.2 K/mm3 (0.0-0.7); EOS % 2.8 % (0.0-4.0); GRAN # 6.4 K/mm3 (1.4-6.5); GRAN % 77.7 % (42.2-75.2); HEMATOCRIT 44.6 % (42.0-52.0); HEMOGLOBIN 14.8 g/dl (13.5-18.0); LYMPH # 0.7 K/mm3 (1.2-3.4); LYMPH % 8.5 % (20.0-51.0); MEAN CELL VOLUME 94 fl (80.0-100.0); MEAN CORPUSCULAR HEMOGLOBIN 31 pg (27-31); MEAN CORPUSCULAR HGB CONC 33 g/dl (33.0-37.0); MEAN PLATELET VOLUME 9.8 fl (7.4-10.4); MONO # 0.8 K/mm3 (0.1-0.6); MONO % 9.5 % (1.7-9.3); PLATELET COUNT 208 K/mm3 (130-400); RED BLOOD COUNT 4.76 M/mm3 (4.20-5.60)
--- NOTE | 2022-03-17 14:06 | NUR ---
Pt ambulates out with steady gait, escorted out to elevator. IV site was dressed with coban, bleeding controlled prior to discharge. He is instructed to follow up with Cardiology office for labs , he expresses understanding.
== END 2022-03-17 14:10 ==
LOC: EUO 08:53
PROVIDERS: Internal Medicine Cardiovascular Disease
DX: I50.20 Unspecified systolic (congestive) heart failure (principal)
CPT/HCPCS: J1940